=== PATIENT | male | born 1940 | race Caucasian/White ===

== ENCOUNTER 2017-11-12 12:00 | Outpatient (RCR) | payer MEDICARE, SELFPAY ==
--- NOTE | 2017-10-04 11:57 | HP.OTEVAL ---
Patient's Visit Information ALEJANDRO ACE is a 77 year old M, referred to Occupational Therapy by Enrike Gallegos, with a diagnosis of CVA. Date of Evaluation: 10/04/17 Occupational Therapist: Kay Dash, PILO/[place], CHT - Subjective Subjective: This 77 year old male was seen for OT eval with dx of CVA- pt states mini CVA on September 01, 2016. pt states he has been in the hospital until September 27, 2017. pt states he had PT/OT and speech therapy while in hospital- pt states he is feeling ok, but he states he has noticed he continues to have trouble with walking. Pt states he is using a shower chair with his shower- has grab bar to use when he is getting in or out of the shower. Pt reports he lives in a two story home. pt states he is MOD I with shower, dressing and prep of light meals. pt is not currently driving. 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 - ROM ROM Comments: pt demo bilateral UE ROM WNL - Strength Finished Carpet Inspector: right 55# left 55# Lateral Pinch: right 12# left 11# Tripod Pinch: right 10# left 10# Strength Comments: pt does not demo a weakness in functional devulcanizer tender/pinch strength. MMT of bilateral UE grossly throughout 4+/5 - Stroke Specific Quality of Life Total SS-QOL Score: 196 - Rehabilitation General Assessment: pt demo funtional UB strength and FMS- pt states he is more concerned with his LE strength, balance and walking. Rehabilitation Potential: Excellent - Anticipated Interventions Anticipated Interventions: Other Other Interventions: pt does not demo a need for skilled OT services at this time. PT to complete eval with Physical therapy to address his LE weakness and balance. - Visit Plan TEXT: Thank you for the opportunity to evaluate your patient. For Medicare and Medicare HMO plans, please review the plan of care and approve it. It will need to be FAXED BACK to us at [phone] for Medicare purposes. Please let me know if there are questions or concerns regarding this plan of care. Physician Signature: Date:
--- NOTE | 2017-10-04 12:56 | HP.PTEVAL ---
Patient's Visit Information ALEJANDRO AEC is a 77 year old M referred to Physical Therapy by Enrike Gallegos with a diagnosis of CVA. Date of Evaluation: 10/04/17 Physical Therapist: Holger Gomez DPT, OC - Visit Plan Frequency: 2x /Week Duration: 4-6 Plan: 3 visits to teach HEP of L LE strength, balance and weight shift and establish safety and ensure home stretches and give pics for HEP. Please rollout and stretch quads and HS adn hip flexors each session. Pt wants to get I with HEP adn do it at home due to large co-pay. - Subjective Subjective: Had CVA in September 01(L sided weakness and nausea) and eventually could not walk that day. Brother sent him to hospital the next morning, took squad to hospital, scanned and had stroke. In hospital 11 days and rehab for another 7. Out of rehab on 09/27. Been home a week and has been sitting around. 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 Balance is not as good as it used to be before stroke. Pitches L a little bit. Fell two times this morning turning in bathroom and pitched BW, and was using cane, legs just felt week. Got up off floor himself and carried on. Slow getting up off floor. Fell prior to stroke. Still feels weak in L leg. Sleep is good. No pain other than PEG tube. Failed swallow test. Will take out PEG test on 10/29. 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 basic ADLs at home are OK. Only one problem to solve is that his knees bend as he stands too long. He can get them straight with focus but they tend to bend as he stands. Dresses self and does housework without problem other than that. Steps at home are 16 and uses a railing. - Objective Walks with cane in R hand hunched over and knees slightly flexed. transfers I with adn without UE. Upper leg muscles quad and HS max tight with -65 HS 90-90 test and hip flexion not even to neutral with knee bent(-15). LE strength is 4+ R adn 4 L. coordination to reciprocal toe tapping is good. UE AROM WFL and strength at 4/5. Sensation LE WNL to gross light touch B. reflexes 2/3 patella and achilles. Pt tends to veer R with challenging static postures and slightly posterior. - Balance Scores Functional Gait Assessment Score: 20 % Disability: 33.3400 CATSIB Score (Max score 120 seconds): 95 - Goals Goal 1:: No weakness form one leg to the other Goal Time Frame: 4-6 Weeks Goal 2:: Balance feel back to normal and 25/30 FGA to minimize fall risk. Goal Time Frame: 4-6 Weeks Goal 3:: Patient legs not give out on him in standing anymore. Goal Time Frame: 4-6 Weeks Goal 4:: I approp. HEP Goal Time Frame: 4-6 Weeks - Rehabilitation Potential Physical Therapy Diagnosis: CVA with L sided weakness. Rehabilitation Potential: Fair - Anticipated Interventions Patient/Client Instruction: Educate patient on: Condition, Plan of Care For the Purpose of:: To improve safety with gait Therapeutic Exercise to Include: Strength training, Balance training, Flexibilty training, Active ROM For the Purpose of:: To improve muscle performance and motor function, To improve ability of physical actions for home/community/work/leisure, To improve balance Thank you for the opportunity to evaluate your patient. For Medicare and Medicare HMO plans, please review the plan of care and approve it. It will need to be FAXED BACK to us at [phone] for Medicare purposes. Please let me know if there are questions or concerns regarding this plan of care. Physician Signature: Date:
--- NOTE | 2017-11-12 12:33 | HP.PTDCSUM_ITS ---
HP - PT D/C Summary It has been my pleasure to treat ALEJANDRO ACE under orders from Enrike Gallegos , for the diagnosis of CVA for a total of 5 visit(s). Discharge Date: 11/12/17 Please see the following information for a summary of their discharge status. - Subjective Subjective: OA has come back with a vengeance in knees for no apparent. Will see doctor for this today. Pain in knees is OK if they are straight and 10/10 getting up and down. Exercises going wella t home. Balance is still an issue. Doing ex 1-2x/day. They are challenging. Losing strenght in legs. Knees will give out if bend over too long. - Pain knees Pain Intensity (Out of 10): 2 - Objective Objective/Function: FGA +3. Still takes much time to get knees straigth upon standing. strength LE 4/5 without myotomal or side to side asymmetries. no clonus. Does hurt to extend LB. OVERALL slightly better balance but legs still give out and feel weak to patient likely due to OA in knees. - Goals Goal 1:: No weakness form one leg to the other Goal Progress: Goal Met Goal 2:: Balance feel back to normal and 25/30 FGA to minimize fall risk. Goal 3:: Patient legs not give out on him in standing anymore. Goal Progress: Not Progressing Goal 4:: I approp. HEP Goal Progress: Goal Met - Plan Plan: D/C, pt to doctor for nexct medical step with knees. - D/C Information Discharge Comments: Pt back to doctor for next step with knees. Consider water therapy if no other options. If there are questions or concerns regarding this patient's physical therapy, please feel free to call me at [phone]. Thank you for the referral of this patient. Sincerely, Holger Gomez, DPT, OC
== END 2017-11-12 19:00 | disposition home or self-care (01) ==
LOC: PT 12:00
PROVIDERS: Family Provider Family Medicine; PCP Family Medicine; Visit Provider Physical Medicine & Rehabilitation
DX: Z86.73 Personal history of transient ischemic attack (TIA), and cerebral infarction without residual deficits (principal)
CPT/HCPCS: 97110; 97162; 97166; 97530